=== PATIENT | male | born 1950 | race Caucasian/White ===

== ENCOUNTER 2018-08-23 11:44 | Emergency (ER) | payer MEDICARE ==
[~2018-08-23] VITALS: Ht 177.8 cm; Wt 82.7 kg
[~2018-08-23 11:44] MED LIST: ACET-812 PO; AMLO2.5T2 PO; CARV-50 PO; FERR325T39 PO; FOLI1TAB16 PO; GLIP5TAB13 PO; LISI1TAB11 PO; METF500T PO; MULT1TAB74 PO; NICO-687 TD; PER10325T PO; PRAV40TA3 PO; WALKERFR
[2018-08-23 12:51] LABS: BASOPHILS % (AUTO) 0.1 % (0-1); EOSINOPHILS # (AUTO) 0.2 X10'3 (0-0.9); EOSINOPHILS % (AUTO) 2.6 % (0-6); HEMATOCRIT 37.8 % (42.0-52.0); HEMOGLOBIN 13.5 g/dl (14.0-17.9); LYMPHOCYTES # (AUTO) 0.5 X10'3 (1.1-4.8); LYMPHOCYTES % (AUTO) 7.2 % (21-51); MEAN CORPUSCULAR HEMOGLOBIN 33.8 PG (27.0-31.0); MEAN CORPUSCULAR HGB CONC 35.8 % (33.0-36.5); MEAN CORPUSCULAR VOLUME 94.4 FL (78-98); MEAN PLATELET VOLUME 7.6 FL (7.4-10.4); MONOCYTES % (AUTO) 0.4 % (2-12); NEUTROPHILS # (AUTO) 6.5 X10'3 (1.8-7.7); NEUTROPHILS % (AUTO) 89.7 % (42-75); PLATELET COUNT 239 X10'3 (140-440); RED CELL DISTRIBUTION WIDTH 13.4 % (11.5-14.5); WHITE BLOOD COUNT 7.3 X10'3 (4.5-11.0)
[2018-08-23 13:03] LABS: ALBUMIN 3.5 G/DL (3.4-5.0); ANION GAP 10 (8-16); BLOOD UREA NITROGEN 16 MG/DL (7-18); BUN/CREATININE RATIO 17.4 (5.4-32.0); CALCIUM 8.7 MG/DL (8.5-10.1); CHLORIDE 99 MMOL/L (99-107); CREATININE 0.92 MG/DL (0.60-1.10); GLUCOSE 129 MG/DL (70-104); POTASSIUM 4.2 MMOL/L (3.5-5.1); SODIUM 134 MMOL/L (135-145); TOTAL CARBON DIOXIDE 24.9 MMOL/L (24-32); eGFR 82 ML/MIN
[2018-08-23 14:27] VITALS: BP 135/64
== END 2018-08-23 14:28 | disposition home or self-care (01) ==
LOC: ER 11:44
DX: R25.1 Tremor, unspecified (principal); D64.9 Anemia, unspecified; B02.9 Zoster without complications; K08.89 Other specified disorders of teeth and supporting structures; Z79.899 Other long term (current) drug therapy
CPT/HCPCS: 36415; 80048; 82948; 85025; 99284

== ENCOUNTER 2020-03-20 20:19 | Emergency (ER) | payer MEDICARE, OTHER ==
[~2020-03-20] VITALS: Ht 167.6 cm; Wt 79.5 kg
[~2020-03-20 20:19] MED LIST changes: -LISI1TAB11 PO; +LISI1TAB28 PO
[2020-03-20] MEDS ORDERED: acetaminophen 325mg tablet PO ONE (20:45)
--- NOTE | 2020-03-20 21:01 | NUR ---
To CT via w/c
--- NOTE | 2020-03-20 21:10 | NUR ---
Returned from CT
--- NOTE | 2020-03-20 21:34 | NUR ---
Phoned JOSE MANUEL to verify the police report. Dispatch confirmed the case number is [id number].
[2020-03-20 21:52] VITALS: BP 116/60
== END 2020-03-20 21:48 | disposition home or self-care (01) ==
LOC: ER 20:20
DX: M54.5 Low back pain (principal); Z72.89 Other problems related to lifestyle; Z79.899 Other long term (current) drug therapy; Y08.89XA Assault by other specified means, initial encounter; Y93.89 Activity, other specified; Y92.89 Other specified places as the place of occurrence of the external cause; Y99.8 Other external cause status
CPT/HCPCS: 70450; 72125; 72131; 99285

== ENCOUNTER 2020-09-02 14:39 | Emergency (ER) | payer MEDICARE ==
[~2020-09-02] VITALS: Ht 167.6 cm; Wt 76.4 kg
[~2020-09-02 14:39] MED LIST changes: -LISI1TAB28 PO; +LISI1TAB51 PO; +MULT-620 PO; -MULT1TAB74 PO
[2020-09-02 16:27] LABS: BASOPHILS % (AUTO) 0.3 % (0-1); EOSINOPHILS # (AUTO) 0.2 X10'3 (0-0.9); EOSINOPHILS % (AUTO) 2.5 % (0-6); HEMATOCRIT 41.7 % (42.0-52.0); HEMOGLOBIN 14.4 g/dl (14.0-17.9); LYMPHOCYTES # (AUTO) 1.6 X10'3 (1.1-4.8); LYMPHOCYTES % (AUTO) 19.2 % (21-51); MEAN CORPUSCULAR HEMOGLOBIN 33.9 PG (27.0-31.0); MEAN CORPUSCULAR HGB CONC 34.6 g/dL (33.0-36.5); MEAN CORPUSCULAR VOLUME 97.8 FL (78-98); MEAN PLATELET VOLUME 8.4 FL (7.4-10.4); MONOCYTES # (AUTO) 0.8 X10'3 (0-0.9); MONOCYTES % (AUTO) 9.4 % (2-12); NEUTROPHILS # (AUTO) 5.8 X10'3 (1.8-7.7); NEUTROPHILS % (AUTO) 68.6 % (42-75); PLATELET COUNT 345 X10'3 (140-440); RED BLOOD COUNT 4.26 X10'6 (4.70-6.10); WHITE BLOOD COUNT 8.4 X10'3 (4.5-11.0)
[2020-09-02 16:45] LABS: ALANINE AMINOTRANSFERASE 51 U/L (12-78); ALBUMIN 3.6 G/DL (3.4-5.0); ALBUMIN/GLOBULIN RATIO 1.1 (1.1-1.5); ALKALINE PHOSPHATASE 73 IU/L (46-116); ANION GAP 6 (8-16); ASPARTATE AMINO TRANSFERASE 34 U/L (10-37); BILIRUBIN,TOTAL 0.3 MG/DL (0.1-1.0); BLOOD UREA NITROGEN 59 MG/DL (7-18); BUN/CREATININE RATIO 43.7 (5.4-32.0); CALCIUM 8.8 MG/DL (8.5-10.1); CHLORIDE 97 MMOL/L (99-107); CREATININE 1.35 MG/DL (0.60-1.10); GLUCOSE 111 MG/DL (70-104); POTASSIUM 3.3 MMOL/L (3.5-5.1); SODIUM 131 MMOL/L (135-145); TOTAL CARBON DIOXIDE 27.7 MMOL/L (24-32); TOTAL PROTEIN 6.9 G/DL (6.4-8.2); eGFR 53 ML/MIN
[2020-09-02] MEDS ORDERED: normal saline 1000ML IV soln IVB ONE ×2 (17:00→17:45)
[2020-09-02 18:10] VITALS: BP 152/74
[2020-09-02 18:38] LABS: CLARITY,URINE SLIGHTLY CLOUDY (Clear); COLOR,URINE YELLOW (Yellow); GLUCOSE, URINE NEGATIVE (Neg); KETONES,URINE NEGATIVE (Neg); LEUKOCYTE ESTERASE ,URINE LARGE (Neg); NITRITES, URINE NEGATIVE (Neg); OCCULT BLOOD,URINE TRACE-INTACT (Neg); PROTEIN,URINE NEGATIVE (Neg); UROBILINOGEN,URINE 0.2 E.U/dL (0.2-1.0)
[2020-09-02 18:46] LABS: UA COLLECTION TYPE CLN CATCH MIDSTREAM
[2020-09-02 18:48] LABS: BACTERIA,URINE FEW /HPF (Neg); RBC,URINE 0-2 /HPF (0-2); SQUAMOUS EPITHELIAL CELL,UR FEW /LPF (FEW); WBC CLUMPS,URINE FEW /HPF (NEGATIVE); WBC,URINE 20-30 /HPF (0-4)
[2020-09-02 18:49] LABS: TRANSITIONAL EPI CELLS,URINE FEW /HPF
[2020-09-02] MEDS ORDERED: CIPR-230 PO (18:59)
[2020-09-02] MEDS ORDERED: LACT1CAP65 PO (19:00)
== END 2020-09-02 19:22 | disposition home or self-care (01) ==
LOC: ER 14:40
DX: R42 Dizziness and giddiness (principal); E87.1 Hypo-osmolality and hyponatremia; R79.89 Other specified abnormal findings of blood chemistry; N39.0 Urinary tract infection, site not specified; I10 Essential (primary) hypertension; F17.200 Nicotine dependence, unspecified, uncomplicated; Z79.2 Long term (current) use of antibiotics; Z79.899 Other long term (current) drug therapy
CPT/HCPCS: 36415; 71045; 80053; 81001; 83880; 84484; 85025; 87077; 87088; 87186; 93005; 96360; 96361; 99285; J7030; 99284

== ENCOUNTER 2021-09-01 14:40 | Emergency (ER) | payer MEDICARE ==
[~2021-09-01] VITALS: Ht 172.7 cm; Wt 72.7 kg
[~2021-09-01 14:40] MED LIST changes: -ACET-812 PO; -CARV-50 PO; +CARV25TA3 PO; -FERR325T39 PO; -FOLI1TAB16 PO; -GLIP5TAB13 PO; +HYDR25TA4 PO; -LISI1TAB51 PO; +LISI40TA13 PO; +METF-900 PO; -METF500T PO; -NICO-687 TD; -WALKERFR; +WARF-55 PO
[2021-09-01 14:53] VITALS: BP 118/55
[2021-09-01 15:40] LABS: BASOPHILS % (AUTO) 0.5 % (0-1); EOSINOPHILS # (AUTO) 0.2 X10'3 (0-0.9); EOSINOPHILS % (AUTO) 2.4 % (0-6); HEMATOCRIT 32.7 % (42.0-52.0); HEMOGLOBIN 11.4 g/dl (14.0-17.9); LYMPHOCYTES # (AUTO) 1.9 X10'3 (1.1-4.8); LYMPHOCYTES % (AUTO) 29.4 % (21-51); MEAN CORPUSCULAR HEMOGLOBIN 34.6 PG (27.0-31.0); MEAN CORPUSCULAR HGB CONC 34.8 g/dL (33.0-36.5); MEAN CORPUSCULAR VOLUME 99.6 FL (78-98); MEAN PLATELET VOLUME 8.6 FL (7.4-10.4); MONOCYTES # (AUTO) 0.6 X10'3 (0-0.9); MONOCYTES % (AUTO) 8.8 % (2-12); NEUTROPHILS # (AUTO) 3.9 X10'3 (1.8-7.7); NEUTROPHILS % (AUTO) 58.9 % (42-75); PLATELET COUNT 293 X10'3 (140-440); RED BLOOD COUNT 3.29 X10'6 (4.70-6.10); RED CELL DISTRIBUTION WIDTH 13.9 % (11.5-14.5); WHITE BLOOD COUNT 6.6 X10'3 (4.5-11.0)
[2021-09-01 15:53] LABS: ALANINE AMINOTRANSFERASE 50 U/L (12-78); ALBUMIN 3.1 G/DL (3.4-5.0); ALBUMIN/GLOBULIN RATIO 1.1 (1.1-1.5); ALKALINE PHOSPHATASE 85 IU/L (46-116); ANION GAP 12 (8-16); ASPARTATE AMINO TRANSFERASE 36 U/L (10-37); BILIRUBIN,TOTAL 0.3 MG/DL (0.1-1.0); BLOOD UREA NITROGEN 50 MG/DL (7-18); BUN/CREATININE RATIO 25.4 (5.4-32.0); CALCIUM 8.1 MG/DL (8.5-10.1); CHLORIDE 95 MMOL/L (99-107); CREATININE 1.97 MG/DL (0.60-1.10); GLUCOSE 153 MG/DL (70-104); LIPASE 84 U/L (73-393); POTASSIUM 4.2 MMOL/L (3.5-5.1); SODIUM 127 MMOL/L (135-145); TOTAL CARBON DIOXIDE 20.5 MMOL/L (24-32); eGFR 34 ML/MIN
[2021-09-01] MEDS ORDERED: normal saline 1000ML IV soln IVB ONE ×2 (17:05→17:15)
== END 2021-09-01 18:23 | disposition home or self-care (01) ==
LOC: ER 14:41
DX: R10.9 Unspecified abdominal pain (principal); E86.0 Dehydration; E87.1 Hypo-osmolality and hyponatremia; I10 Essential (primary) hypertension; Z79.899 Other long term (current) drug therapy
CPT/HCPCS: 36415; 80053; 83690; 85025; 96360; 99283; J7030

== ENCOUNTER 2023-02-26 21:36 | Emergency (ER) | payer MEDICARE ==
[~2023-02-26] VITALS: Ht 170.2 cm; Wt 70.5 kg
[~2023-02-26 21:36] MED LIST changes: -AMLO2.5T2 PO; +ATOR-2 PO; -CARV25TA3 PO; +CARV3.12 PO; -HYDR25TA4 PO; +LACT1CAP26 PO; +LISI10TA27 PO; -LISI40TA13 PO; +METF-436 PO; -METF-900 PO; -PER10325T PO; -PRAV40TA3 PO; +THIA50TA10 PO; -WARF-55 PO; +WARF2.5T82 PO
[2023-02-27] MEDS ORDERED: LIDOCAINE 2% (20mg/ml) w/EPINEPHRINE 1:200,000-PF 10 ML inj. SQ ONE (02:55)
[2023-02-27] MEDS ORDERED: LIDOCAINE 2%/EPI 1:100,000 inj. Multi-dose 20 ML VIAL SQ ONE (03:05)
[2023-02-27] MEDS ORDERED: HYDROcodone/acetaminophen 5mg/325mg tablet PO ONE (03:40)
[2023-02-27] MEDS ORDERED: HYDR-3965 PO (03:40)
[2023-02-27 03:55] VITALS: BP 155/80
== END 2023-02-27 03:57 | disposition home or self-care (01) ==
LOC: ER 21:37
DX: M25.061 Hemarthrosis, right knee (principal); I10 Essential (primary) hypertension; E78.00 Pure hypercholesterolemia, unspecified; E11.9 Type 2 diabetes mellitus without complications
CPT/HCPCS: 20610; 73564; 99285; A6449

== ENCOUNTER 2023-06-28 17:42 | Emergency (ER) | payer MEDICARE ==
[~2023-06-28] VITALS: Ht 172.7 cm; Wt 70.4 kg
[2023-06-28 17:44] VITALS: BP 153/79; PULSE 82; RESP 16; O2SAT 98
[2023-06-28] MEDS ORDERED: IBUP-862 PO (18:50)
[2023-06-28] MEDS ORDERED: HYDR-3973 PO (18:50)
[2023-06-28] MEDS ORDERED: DICL100G30 TOP (18:50)
[2023-06-28] MEDS ORDERED: ketorolac trometh. 30mg/ml inj. IM ONE (18:55)
[2023-06-28] MEDS ORDERED: HYDROcodone/acetaminophen 10/325mg tab PO ONE (18:55)
== END 2023-06-28 19:51 | disposition home or self-care (01) ==
LOC: ER 17:42
DX: M25.462 Effusion, left knee (principal); M17.12 Unilateral primary osteoarthritis, left knee; E78.00 Pure hypercholesterolemia, unspecified; I11.9 Hypertensive heart disease without heart failure; E11.9 Type 2 diabetes mellitus without complications; Z79.899 Other long term (current) drug therapy; Z79.1 Long term (current) use of non-steroidal anti-inflammatories (NSAID); Z79.2 Long term (current) use of antibiotics
CPT/HCPCS: 73564; 96372; 99283; J1885

== ENCOUNTER → 2023-10-23 | Emergency (ER) | payer MEDICARE ==
[~2023-10-23] VITALS: Ht 172.7 cm; Wt 71.8 kg
[~2023-10-23] MED LIST changes: +CYCL-1 PO; +DICL100G59 TOP; +IBUP-862 PO; +PRED20TA PO; +dexamethasone sod phosphate 10mg/ml inj IM STA; +diazepam inj 5 MG/ML inj. IM ONE
[2023-10-23 10:15] VITALS: BP 165/93; PULSE 75; TEMP 98.6; O2SAT 97
[2023-10-23 11:01] VITALS: RESP 18
--- NOTE | 2023-10-23 12:12 | NUR ---
I AGREE WITH THE ASSESSMENT PER Bhavin SUH LVN
== END | disposition home or self-care (01) ==
LOC: ER 10:11
DX: M54.16 Radiculopathy, lumbar region (principal); E78.00 Pure hypercholesterolemia, unspecified; I11.0 Hypertensive heart disease with heart failure; E11.9 Type 2 diabetes mellitus without complications; Z79.899 Other long term (current) drug therapy
CPT/HCPCS: 96372; 99284; J1100; J3360

== ENCOUNTER 2023-11-15 13:34 | Emergency (ER) | payer MEDICARE ==
[~2023-11-15] VITALS: Ht 172.7 cm; Wt 72.4 kg
[~2023-11-15 13:34] MED LIST changes: -dexamethasone sod phosphate 10mg/ml inj IM STA; -diazepam inj 5 MG/ML inj. IM ONE
[2023-11-15 14:32] VITALS: BP 176/90; PULSE 77; TEMP 97.7; O2SAT 100
[2023-11-15 15:54] LABS: BILIRUBIN,URINE NEGATIVE (Neg); CLARITY,URINE CLOUDY (Clear); COLOR,URINE YELLOW (Yellow); GLUCOSE, URINE NEGATIVE (Neg); KETONES,URINE NEGATIVE (Neg); LEUKOCYTE ESTERASE ,URINE MODERATE (Neg); NITRITES, URINE NEGATIVE (Neg); OCCULT BLOOD,URINE LARGE (Neg); PH,URINE 7.5 (4.8-8.0); PROTEIN,URINE 100 mg/dl (Neg); UA COLLECTION TYPE CLN CATCH MIDSTREAM; UROBILINOGEN,URINE 0.2 E.U/dL (0.2-1.0)
[2023-11-15 16:01] LABS: BACTERIA,URINE 4+ /HPF (Neg); MUCUS STRANDS NONE SEEN /LPF (Neg); RBC,URINE TNTC /HPF (0-2); SQUAMOUS EPITHELIAL CELL,UR NONE SEEN /LPF (FEW); WBC CLUMPS,URINE MANY /HPF (NEGATIVE); WBC,URINE TNTC /HPF (0-4)
[2023-11-15 16:17] LABS: ALANINE AMINOTRANSFERASE 32 U/L (12-78); ALBUMIN 3.3 G/DL (3.4-5.0); ALBUMIN/GLOBULIN RATIO 0.9 (1.1-1.5); ALKALINE PHOSPHATASE 109 IU/L (46-116); AMYLASE 83 U/L (25-115); ANION GAP 9 (8-16); ASPARTATE AMINO TRANSFERASE 34 U/L (10-37); BILIRUBIN,TOTAL 0.6 MG/DL (0.1-1.0); BLOOD UREA NITROGEN 20 MG/DL (7-18); CALCIUM 8.7 MG/DL (8.5-10.1); CHLORIDE 99 MMOL/L (99-107); CREATININE 1.33 MG/DL (0.60-1.10); GLUCOSE 107 MG/DL (70-104); LIPASE 45 U/L (16-77); POTASSIUM 4.3 MMOL/L (3.5-5.1); SODIUM 131 MMOL/L (135-145); TOTAL CARBON DIOXIDE 23.2 MMOL/L (24-32); TOTAL PROTEIN 6.8 G/DL (6.4-8.2); eCRCL 49 ML/MIN; eGFR 53 ML/MIN
[2023-11-15 16:23] LABS: HEMATOCRIT 34.7 % (42.0-52.0); MONOCYTES # (AUTO) 0.6 X10'3 (0-0.9)
[2023-11-15 16:24] LABS: BASOPHILS % (AUTO) 0.5 % (0-1); EOSINOPHILS # (AUTO) 0.3 X10'3 (0-0.9); EOSINOPHILS % (AUTO) 4.3 % (0-6); HEMOGLOBIN 12.1 g/dl (14.0-17.9); LYMPHOCYTES % (AUTO) 28.4 % (21-51); MEAN CORPUSCULAR HGB CONC 34.9 g/dL (33.0-36.5); MEAN CORPUSCULAR VOLUME 100.4 FL (78-98); MEAN PLATELET VOLUME 7.8 FL (7.4-10.4); MONOCYTES % (AUTO) 7.7 % (2-12); NEUTROPHILS # (AUTO) 4.2 X10'3 (1.8-7.7); NEUTROPHILS % (AUTO) 59.1 % (42-75); PLATELET COUNT 341 X10'3 (140-440); RED BLOOD COUNT 3.45 X10'6 (4.70-6.10); WHITE BLOOD COUNT 7.2 X10'3 (4.5-11.0)
[2023-11-15 17:02] VITALS: RESP 16
[2023-11-15] MEDS ORDERED: CefTRIAXone 1000mg IM Kit (w/lidocaine diluent) IM STA (17:35)
[2023-11-15] MEDS ORDERED: CIPR-113 PO (17:39)
== END 2023-11-15 18:27 | disposition home or self-care (01) ==
LOC: ER 13:34
DX: N39.0 Urinary tract infection, site not specified (principal)
CPT/HCPCS: 36415; 74176; 80053; 81001; 82150; 83690; 85025; 87088; 96372; 99285; J0696

== ENCOUNTER 2024-08-29 06:31 | Day surgery (SDC) | payer MEDICARE ==
[~2024-08-29] VITALS: Ht 170.2 cm; Wt 66.6 kg
[2024-08-29] VITALS (10 sets, daily range): BP systolic 110–179; BP diastolic 53–91; PULSE 60–82; RESP 14–16; TEMP 97.8; O2SAT 97–100
[~2024-08-29 06:31] MED LIST changes: +ACET-890 PO; -CYCL-1 PO; -DICL100G59 TOP; +HYDR25TA4 PO; -IBUP-862 PO; -LACT1CAP26 PO; -PRED20TA PO; -THIA50TA10 PO
[2024-08-29] MEDS ORDERED: sodium bicarbonate 1meq/ml syr 150 ML in dextrose 5%-water 1,000 ML IV ONE (06:50)
[2024-08-29] MEDS ORDERED: FERR324T2 PO (07:17)
[2024-08-29] MEDS ORDERED: CARV6.2553 PO (07:17)
[2024-08-29] MEDS ORDERED: BUME1TAB8 PO (07:19)
[2024-08-29] MEDS ORDERED: EMPA10TA PO (07:20)
[2024-08-29] MEDS ORDERED: APIX5TAB3 PO (07:20)
[2024-08-29] MEDS: diphenhydrAMINE 25mg capsule PO PRN (07:33)
[2024-08-29] MEDS: normal saline 1,000 ML IV SCH (07:34)
[2024-08-29 07:47] LABS: INR 1.1 INR
[2024-08-29 07:51] LABS: BASOPHILS % (AUTO) 0.6 % (0-1); EOSINOPHILS # (AUTO) 0.2 X10'3 (0-0.9); EOSINOPHILS % (AUTO) 3.1 % (0-6); HEMATOCRIT 36.3 % (42.0-52.0); HEMOGLOBIN 11.7 g/dl (14.0-17.9); LYMPHOCYTES # (AUTO) 1.9 X10'3 (1.1-4.8); LYMPHOCYTES % (AUTO) 24.6 % (21-51); MEAN CORPUSCULAR HEMOGLOBIN 29.6 PG (27.0-31.0); MEAN CORPUSCULAR HGB CONC 32.3 g/dL (33.0-36.5); MEAN CORPUSCULAR VOLUME 91.7 FL (78-98); MEAN PLATELET VOLUME 8.4 FL (7.4-10.4); MONOCYTES # (AUTO) 0.6 X10'3 (0-0.9); MONOCYTES % (AUTO) 7.8 % (2-12); NEUTROPHILS % (AUTO) 63.9 % (42-75); PLATELET COUNT 299 X10'3 (140-440); RED BLOOD COUNT 3.95 X10'6 (4.70-6.10); RED CELL DISTRIBUTION WIDTH 21.2 % (11.5-14.5); WHITE BLOOD COUNT 7.8 X10'3 (4.5-11.0)
[2024-08-29 07:53] LABS: ANION GAP 10 (8-16); BLOOD UREA NITROGEN 28 MG/DL (7-18); BUN/CREATININE RATIO 17.7 (10.0-20.0); CALCIUM 8.3 MG/DL (8.5-10.1); CHLORIDE 109 MMOL/L (99-107); CREATININE 1.58 MG/DL (0.60-1.10); GLUCOSE 89 MG/DL (70-104); MAGNESIUM 1.5 MG/DL (1.5-2.4); POTASSIUM 3.6 MMOL/L (3.5-5.1); SODIUM 137 MMOL/L (135-145); TOTAL CARBON DIOXIDE 18.1 MMOL/L (24-32); eCRCL 40 ML/MIN; eGFR 43 ML/MIN
[2024-08-29] MEDS ORDERED: verapamil 2.5 mg/ml inj IV ONE (08:43)
[2024-08-29] MEDS ORDERED: iohexol 350MG/ML 100ml bottle IV ONE (08:44)
[2024-08-29] MEDS ORDERED: midazolam 1 mg/ML 2ml injection ONE ×2 (08:44→09:51)
[2024-08-29] MEDS ORDERED: fentaNYL/PF 50MCG/1 ML 2ML syringe ONE (08:44)
[2024-08-29] MEDS ORDERED: iohexol 350 MG/ML 50ML vial IV ONE ×2 (08:44→10:04)
[2024-08-29] MEDS ORDERED: heparin 1,000unit/ml 10ml vial 10 ML ONE (08:44)
[2024-08-29] MEDS ORDERED: nitroGLYCERIN 500mcg/5mL D5W 5 ML IV ONE (08:45)
[2024-08-29] MEDS ORDERED: LIDOcaine 1% (10mg/ml) 2ml vial ONE (08:45)
[2024-08-29] MEDS ORDERED: LIDOcaine 1% 30ml preserv. free vial ONE (09:48)
[2024-08-29] MEDS ORDERED: HYDROcodone/acetaminophen 10/325mg tab PO PRN (10:50)
[2024-08-29] MEDS ORDERED: ondansetron/PF 4mg/2ml inj IV PRN (10:50)
[2024-08-29] MEDS ORDERED: proCHLORperazine 10 MG/2 ml inj IV PRN (10:50)
[2024-08-29] MEDS ORDERED: HYDROcodone/acetaminophen 5mg/325mg tablet PO PRN (10:50)
== END 2024-08-29 13:30 | disposition home or self-care (01) ==
LOC: SSTAY O 06:31
PROVIDERS: ATTEND Internal Medicine Cardiovascular Disease
DX: I42.9 Cardiomyopathy, unspecified (principal); I25.10 Atherosclerotic heart disease of native coronary artery without angina pectoris; I44.7 Left bundle-branch block, unspecified; R94.31 Abnormal electrocardiogram [ECG] [EKG]; I11.0 Hypertensive heart disease with heart failure; I50.9 Heart failure, unspecified; E11.9 Type 2 diabetes mellitus without complications; I48.0 Paroxysmal atrial fibrillation; E78.5 Hyperlipidemia, unspecified; F17.200 Nicotine dependence, unspecified, uncomplicated; Z86.73 Personal history of transient ischemic attack (TIA), and cerebral infarction without residual deficits
CPT/HCPCS: 36415; 80048; 82948; 83735; 85025; 85610; 93005; 93458; 99152; 99153; A6258; A6402; C1769; C1894; J1644; J2001; J2250; J3010; J3490; J7030; Q0163; Q9967; Z7610; C1760

== ENCOUNTER 2025-01-05 08:28 | Outpatient (CLI) | payer MEDICARE ==
[~2025-01-05 08:28] MED LIST changes: -ACET-890 PO; +AMI200T PO; +APIX2.5T PO; +ASPI81TA53 PO; -CARV3.12 PO; +CARV6.2553 PO; +EMPA10TA PO; +FERR324T2 PO; -HYDR25TA4 PO; -LISI10TA27 PO; +MAGN200T PO; -METF-436 PO; -MULT-620 PO; +OXYC1TAB17 PO; -WARF2.5T82 PO
== END 2025-01-05 23:59 | disposition home or self-care (01) ==
LOC: RAD 08:28
PROVIDERS: ATTEND Nurse Practitioner
DX: N32.0 Bladder-neck obstruction (principal); N32.89 Other specified disorders of bladder; R33.8 Other retention of urine
CPT/HCPCS: 76857

== ENCOUNTER 2025-08-04 09:27 | Day surgery (SDC) | payer MEDICARE ==
[~2025-08-04] VITALS: Ht 170.2 cm; Wt 81.6 kg
[2025-08-04] VITALS (10 sets, daily range): BP systolic 115–156; BP diastolic 59–81; PULSE 48–58; RESP 15–22; TEMP 98; O2SAT 93–98
[~2025-08-04 09:27] MED LIST changes: -AMI200T PO; +AMIO200T27 PO; -APIX2.5T PO; +APIX5TAB3 PO; -ASPI81TA53 PO; +CARV25TA2 PO; -CARV6.2553 PO; -EMPA10TA PO; +FURO40TA4 PO; +MULT-1249 PO; -OXYC1TAB17 PO; +POTA-206 PO
--- NOTE | 2025-08-04 10:29 | ELECTROCARDIOGRAPH REPORT ---
[facility] Test Date: 2025-08-04 Test Time: 10:27:22 Pat Name: ELICEO KO Department: [facility] Patient ID: [facility]-[id number] Room: Gender: M Client Technical Support Associate: CHRIS : 1950 Requested By: KOTA BELL Order Number: [id number] Reading MD: Dr. BERT Marlow Measurements Intervals [place] Rate: 53 P: 48 WV: 241 QRS: -57 QRSD: 138 T: 109 QT: 496 QTc: 466 Interpretive Statements Sinus rhythm Prolonged WV interval Left bundle branch block Electronically Signed On 08-04-2025 17:03:[address] BERT Marlow Please click the below link to view image of tracing.
[2025-08-04 10:31] LABS: MEAN PLATELET VOLUME 8.5 FL (7.4-10.4); RED CELL DISTRIBUTION WIDTH 15.9 % (11.5-14.5)
[2025-08-04] MEDS ORDERED: TAMS-55 PO (10:39)
[2025-08-04] MEDS: sodium bicarbonate 1meq/ml syr 150 ML in dextrose 5%-water 1,000 ML IV ONE (10:40)
[2025-08-04 10:44] LABS: INR 1.2 INR
[2025-08-04] MEDS ORDERED: LIDOcaine 1% 30ml preserv. free vial ONE (10:47)
[2025-08-04] MEDS ORDERED: midazolam 1 mg/ML 2ml injection ONE ×2 (10:47→11:21)
[2025-08-04] MEDS ORDERED: iohexol 350 MG/ML 50ML vial IV ONE (10:47)
[2025-08-04] MEDS ORDERED: fentaNYL/PF 50MCG/1 ML 2ML syringe ONE (10:47)
[2025-08-04] MEDS ORDERED: heparin 1,000unit/ml 10ml vial 10 ML ONE (10:48)
[2025-08-04] MEDS ORDERED: hydrALAZINE 20mg/ml inj. ONE (12:22)
[2025-08-04 13:36] LABS: CREATININE 2.38 MG/DL (0.60-1.10); TOTAL CARBON DIOXIDE 22.6 MMOL/L (24-32); eCRCL 26 ML/MIN; eGFR 27 ML/MIN
--- NOTE | 2025-08-04 14:12 | CARDIOLOGY REPORT ---
DATE OF SERVICE: 08/04/2025 DICTATING PHYSICIAN: KOTA BELL DO CARDIAC CATHETERIZATION REPORT REFERRING PHYSICIAN: Bravo Oviedo MD CLINICAL HISTORY: This 75-year-old man is status post 4-vessel CABG in 08/2024. He received a HORN to the mid LAD, a single saphenous vein graft to an LCXOMB, and a sequential saphenous vein graft to the RCA, PDA, and a posterolateral branch. He has not had any recurrence of angina, but he does have reduced LV function and reduced exercise tolerance in association with marked mitral regurgitation. The patient is being considered for valve repair/replacement. PROCEDURES PERFORMED: * Right heart catheterization. * Left heart catheterization. * Left ventriculography. * Selective coronary arteriography. * Selective opacification of saphenous vein grafts. * Selective opacification of left internal mammary graft. * Percutaneous arteriotomy closure (Mynx). * 75 minutes conscious sedation and supervision. DESCRIPTION OF PROCEDURE: The patient was sedated with fentanyl and Versed. He was then prepared and draped in the usual manner. The right inguinal area was infiltrated with 1% lidocaine. Using micropuncture set and Seldinger techniques, a 6-Anguillan sheath was placed in the common femoral vein and a 7-Anguillan sheath was placed in the common femoral artery. 3000 units of heparin were given. Right heart catheterization was performed using a 6-Anguillan [place]Chaim catheter. Cardiac output was determined using a thermodilution technique. Left heart catheterization and left ventriculography were performed using a 6-Anguillan pigtail catheter. Coronary arteriography was performed using 6-Anguillan #4 left and right Lino catheters. Selective opacification of 2 vein arteriotomies/saphenous vein grafts was performed using the same 6-Anguillan #4 right Lino catheter. The left internal mammary graft was opacified using a 5-Anguillan right Lino catheter. The arterial access site was successfully closed with a Mynx device. Direct pressure was applied tor the common femoral vein access site. RESULTS: HEMODYNAMIC DATA: The mean right atrial pressure was 28 mmHg. Right ventricular pressure was 74/18 mmHg. Pulmonary capillary wedge pressure was 27 mmHg. Left ventricular end diastolic pressure was 21 mmHg. Pulmonary arterial pressure was 82/23 mmHg. Cardiac output by thermodilution technique was 4.28 L/min. There was a 9 mm gradient across the aortic valve. LEFT VENTRICULOGRAM: The left ventriculogram was technically adequate. Post PVC, the ejection fraction was not better than about 35%-40%. There was liberal calcification in both the left and right coronary arteries. There appeared to be at least 3+ mitral regurgitation (i.e., equal opacity after 3 beats in both ventricle and the left atrium). CORONARY ARTERIOGRAPHY: The coronary arteriograms are technically satisfactory. The patient had a right dominant system. LEFT MAIN CORONARY ARTERY: The left main was a medium-sized vessel that appeared to be narrowed at its origin by about 50%-60%. The vessel trifurcated into left anterior descending intermediate and circumflex coronary artery. LEFT ANTERIOR DESCENDING CORONARY ARTERY: The LAD was an overall medium transapical vessel. There was a small to medium-sized first diagonal taking its origin from the mid LAD at exactly the same location as the first major septal professor of art history. At this junction of the LAD, the takeoff of the first diagonal and the first major septal professor of art history, there was a hazy-appearing stenosis, which overall appears to be in the range of 90-95%. There was competitive flow in the mid vessel due to a HORN graft. INTERMEDIATE ARTERY: The intermediate was a large unobstructed vessel, bifurcating at mid vessel. CIRCUMFLEX ARTERY:The origin of the circ was narrowed by about 75-80%. There was a large first obtuse marginal that was grafted. RIGHT CORONARY ARTERY: The right coronary artery was a small to medium-sized vessel totally occluded in its mid segment. SELECTIVE OPACIFICATION OF BYPASS GRAFTS: 1. There is a patent saphenous vein graft anastomosed to the posterior descending branch and to the first posterolateral branch. The graft was patent as was the case for the grafted vessels beyond the distal anastomosis. 2. There is a patent saphenous vein graft leading to the firstcircumflex marginal branch. The graft and the vessel beyond the distal anastomosis were both widely patent. 3. There is a patent HORN graft leading to the mid LAD. There were no obstructive lesions in the graft or in the ambler vessel beyond the distal anastomosis. CONCLUSIONS: * Severe pulmonary hypertension. Measured pulmonary arterial pressure was 82/23 mmHg. * Obstructive coronary artery disease manifested primarily as follows: A. 90% proximal LAD. B. 75% near ostial circumflex coronary artery. C. 100% mid right coronary. * Bypass graft status as follows: A. Patent and unobstructed HORN to mid LAD. B. Patent SVG to principal circumflex marginal branch. C. Patent sequential SVG to RCA, PDA, and first posterolateral branch. D. Patent HORN to mid LAD. * The patient also appears to have fairly severe mitral regurgitation. As estimated by the ventriculogram, the amount is estimated to be 3+. * Left ventricular function is moderately to markedly reduced. The estimated LVEF was 35%-40%. KOTA BELL DO TID: [id number] RECEIPT: [id number] ILEANA BOLTON
== END 2025-08-04 15:43 | disposition home or self-care (01) ==
LOC: SSTAY O 09:27
PROVIDERS: ATTEND Internal Medicine Cardiovascular Disease
DX: I34.0 Nonrheumatic mitral (valve) insufficiency (principal); I44.7 Left bundle-branch block, unspecified; R94.31 Abnormal electrocardiogram [ECG] [EKG]; I25.10 Atherosclerotic heart disease of native coronary artery without angina pectoris; I13.0 Hypertensive heart and chronic kidney disease with heart failure and stage 1 through stage 4 chronic kidney disease, or unspecified chronic kidney disease; E11.22 Type 2 diabetes mellitus with diabetic chronic kidney disease; N18.9 Chronic kidney disease, unspecified; I50.9 Heart failure, unspecified; E78.5 Hyperlipidemia, unspecified; I48.0 Paroxysmal atrial fibrillation; Z86.73 Personal history of transient ischemic attack (TIA), and cerebral infarction without residual deficits; Z87.891 Personal history of nicotine dependence; Z95.1 Presence of aortocoronary bypass graft
CPT/HCPCS: 36415; 80053; 83735; 85025; 85610; 93005; 93461; 99152; 99153; A4620; A6258; C1725; C1751; C1760; C1769; C1894; J1171; J1644; J2003; J2250; J3010; J3490; J7030; J7070; Q0163; Q9967; Z7610; J0360

== ENCOUNTER 2025-08-24 12:26 | Outpatient (CLI) | payer MEDICARE ==
[~2025-08-24 12:26] MED LIST changes: +AMLO5TAB16 PO; +CARV12.545 PO; -CARV25TA2 PO; -FERR324T2 PO; +IRON15TA3 PO; +TAMS-55 PO
--- NOTE | 2025-08-24 13:53 | VASCULAR REPORT ---
Carotid Duplex Date: 08/24/2025 12:56 PM Clinical History: Preop, valve replacement Comparison: VASC VL VENOUS on DOS: 09/19/24, VASC VL CAROTID on DOS: 09/19/24, VASC VL VENOUS on DOS: 02/27/24 Technique: Duplex Doppler evaluation of the extracranial carotid and vertebral arteries including color Doppler and spectral/pulsed waveform analysis was performed. Findings: Left pCCA 97/9 cm/s pCCA 125/22 cm/s dCCA 115/18 cm/s dCCA 139/26 cm/s ECA 104/ cm/s ECA 119/ cm/s pICA 77/17 cm/s pICA 93/19 cm/s Kelsey 87/22 cm/s Kelsey 70/14 cm/s dICA 3/3 cm/s dICA 70/18 cm/s Vert. 27/9 cm/s Vert. 64/18 cm/s Subcl. 174/ cm/s Subcl. 204/ cm/s ICA/CCA 0.76 ICA/CCA 0.67 Real-Time B-Mode Imaging Area Findings Right Left CCA Plaque Composition Heterogenous with calcification Heterogeneous with calcification Plaque Description Irregular Irregular Plaque Area Focal Focal BIF Plaque Composition Heterogeneous with calcification Heterogeneous with calcification Plaque Description Irregular Irregular Plaque Area Focal Focal ICA Plaque Composition Heterogenous with calcification Heterogeneous with calcification Plaque Description Irregular rregular Plaque Area Focal Focal ECA Plaque Composition Heterogenous with calcification Heterogenous with calcification Plaque Description Irregular rregular Plaque Area Focal Focal Vertebral Antegrade Antegrade Subclavian Multiphasic Multiphasic CONCLUSION Calcified plaques noted throughout bilateral carotid arteries, but no hemodynamically significant stenosis or occlusion noted. Antegrade
== END 2025-08-24 23:59 | disposition home or self-care (01) ==
LOC: RAD 12:26
PROVIDERS: ATTEND Internal Medicine Cardiovascular Disease
DX: I65.23 Occlusion and stenosis of bilateral carotid arteries (principal); R09.89 Other specified symptoms and signs involving the circulatory and respiratory systems
CPT/HCPCS: 93880